=== PATIENT | female | born 1960 | race Caucasian/White ===

== ENCOUNTER → 2019-10-04 | Outpatient (CLI) | payer BC, OTHER ==
[~2019-10-04] MED LIST: IOPAMIDOL 370 MG/ML 200 ML INFUS..BTL INJ ONE; SODIUM CHLORIDE 0.9% 50ML 50 ML ONE
[2019-10-04 08:02] LABS: BLOOD UREA NITROGEN 7 mg/dL (7-26); BUN/CREATININE RATIO 8 (6-25); CREATININE, SERUM 0.83 mg/dL (0.57-1.11); EST GLOMERULAR FILTRATION RATE > 60 ML/MIN (60-)
--- NOTE | 2019-10-04 09:21 | Diagnostic Imaging Report ---
Exam: CT abdomen and pelvis Clinical history: Left-sided pain Technique: Helical images of the abdomen and pelvis were obtained after IV contrast administration DOSE REDUCTION: The exams was performed according to the departmental dose-optimization program which includes automated exposure control, adjustment of the mA and/or kV according to patient size and/or use of iterative reconstruction technique. Findings: The lung bases are clear. There is no evidence of pleural effusion. The cardiac size is within normal limits. The liver, spleen, pancreas, adrenal glands, and kidneys are unremarkable. The gallbladder has been removed. The small and large bowels are normal in caliber without evidence of obstruction. The bladder is unremarkable. The uterus and ovaries are not visualized which may represent prior resection. There is no evidence of lymphadenopathy or free fluid. The aorta and IVC are normal in caliber. Atherosclerotic calcifications are noted throughout the aorta with calcified plaques seen at the origins of bilateral renal arteries and celiac artery. Impression: 1. Status post cholecystectomy. 2. Atherosclerotic disease of the abdominal vessels. 3. Sigmoid diverticulosis without CT evidence of acute diverticulitis. Signed by: Dr. Robert Moncada MD on 10/04/2019 9:19 AM
== END ==
LOC: CT 07:24
PROVIDERS: ATTEND Internal Medicine
DX: R10.9 Unspecified abdominal pain (principal)
CPT/HCPCS: 36415; 74177; 82565; 84520; Q9967

== ENCOUNTER → 2020-02-01 | Outpatient (CLI) | payer BC, OTHER ==
--- NOTE | 2020-02-01 10:15 | Diagnostic Imaging Report ---
TECHNIQUE: Magnetic resonance imaging of the LEFT ANKLE was performed WITHOUT injected contrast. COMPARISON: None available. HISTORY: Left ankle pain FINDINGS: LIGAMENTS: Medial Complex: Scarring of the deltoid ligament Lateral Complex: Scarring of the ATFL with thinning. TENDONS: Medial: Posterior tibial and flexor tendons intact. Lateral: Peroneal tendons intact. Anterior: Anterior tibial and extensor tendons intact. Achilles: Insertional tendinopathy of the Achilles tendon with thickening and mucoid degeneration. Insertional enthesophyte. BONES: Reactive edema of the calcaneus at the Achilles insertion. No acute fracture or osteonecrosis. JOINTS: Cartilage: No focal defect is identified involving the tibiotalar joint. Other: Fluid within the joints is within physiologic limits. SOFT TISSUES: Retrocalcaneal bursitis. IMPRESSION: Shira's syndrome with insertional Achilles tendinopathy, retrocalcaneal bursitis, and enlarged posterior calcaneal tubercle with reactive edema. Scarring of the ankle ligaments. Signed by: Dr. Rigo Lugo M.D. on 02/01/2020 10:12 AM
== END ==
LOC: MRI 08:35
PROVIDERS: ATTEND Internal Medicine
DX: M25.572 Pain in left ankle and joints of left foot (principal); M92.62 Juvenile osteochondrosis of tarsus, left ankle

== ENCOUNTER → 2025-04-04 | Outpatient (REF) | payer MEDICARE | LOC: MAMMO 08:45 | PROVIDERS: ATTEND Internal Medicine | DX: Z12.31 Encounter for screening mammogram for malignant neoplasm of breast (principal) | CPT/HCPCS: 77067 ==